=== PATIENT | male | born 1965 | race Caucasian/White ===

== ENCOUNTER 2022-07-31 14:31 | Emergency (ER) | payer MEDICAID, SELFPAY ==
[2022-07-31 14:42] VITALS: BP 154/96; PULSE 93; RESP 20; TEMP 36.6; O2SAT 96; BMI 21.8
[2022-07-31 15:12] LABS: Add Urine Microscopic? NO; Bilirubin Urine Neg (Negative); Blood Urine Neg (Negative); Charge for UA Resulting for Rev; Glucose Urine UA Norm (Normal); Ketones Urine Negative (Negative); Leukocyte Esterase Urine Negative (Negative); Nitrate Urine Negative (Negative); Protein Urine Neg (Negative); Urine Appearance Clear (CLEAR); Urine Color Yellow (Yellow); Urobilinogen Urine Norm (Negative); pH Urine 6 (5-7)
--- NOTE | 2022-07-31 15:25 | W.ED.EXTPRO ---
HPI - Extremity Problem General: Chief complaint: Extremity Injury, Lower Stated complaint: L Lower back pain into leg Time Seen by Provider: 07/31/22 15:12 PFSH ED PFSH: Medical History (Updated 07/31/22 @ 16:03 by Nicola Perkins DO) Arthritis COPD (chronic obstructive pulmonary disease) Hyperlipidemia Hypertension Surgical History (Updated 07/12/22 @ 11:24 by RICCARDO Navarro) History of surgery on lower extremity Hx of hernia repair Family History (Updated 07/08/22 @ 08:42 by Kaity Benavidez) Father No problems noted. Mother Enlarged heart Cancer colon cancer Hypertension Social History (Updated 07/08/22 @ 08:43 by Kaity Benavidez) Smoking and tobacco status: current every day smoker cigarettes Packs smoked per day: 1 Years cigarettes smoked: 40 Second hand smoke exposure: No Alcohol intake: former Household members: spouse, family and children Marital status: service: No Current occupational status: disabled Current gender identity: Male Jayshree/Christianity: Sabianist Special jayshree needs: No Course Vital Signs: Vital signs: Vital Signs Temperature 97.9 F 07/31/22 14:42 Pulse Rate 93 07/31/22 14:42 Respiratory Rate 20 H 07/31/22 14:42 Blood Pressure 154/96 07/31/22 14:42 Pulse Oximetry 96 07/31/22 14:42 Oxygen Delivery Me thod 07/31/22 14:42 MDM - Extremity (Nontraumatic) Lab Data Laboratory Results Urine Color Yellow (Yellow) 07/31/22 14:49 Urine Appearance Clear (CLEAR) 07/31/22 14:49 Urine pH 6 (5-7) 07/31/22 14:49 Ur Specific [place] 1.020 (1.005-1.030) 07/31/22 14:49 Urine Protein Neg (Negative) 07/31/22 14:49 Urine Glucose (UA) Norm (Normal) 07/31/22 14:49 Urine Ketones Negative (Negative) 07/31/22 14:49 Urine Blood Neg (Negative) 07/31/22 14:49 Urine Nitrate Negative (Negative) 07/31/22 14:49 Urine Bilirubin Neg (Negative) 07/31/22 14:49 Urine Urobilinogen Norm mg/dL (Negative) 07/31/22 14:49 Ur Leukocyte Esterase Negative (Negative) 07/31/22 14:49 Discharge Plan Discharge Patient Disposition: Home Clinical Impression: Sciatica Condition: Stable Prescriptions: New diclofenac sodium 75 mg tablet,delayed release (DR/EC) 75 mg PO Q12H PRN (Reason: pain) Qty: 20 0RF tizanidine 4 mg tablet 4 mg PO Q8H PRN (Reason: muscle spasticity) Qty: 20 0RF No Action aspirin 81 mg tablet,delayed release (DR/EC) 81 mg PO DAILY albuterol sulfate [Ventolin HFA] 90 mcg/actuation HFA aerosol inhaler 2 puff inhalation QID PRN (Reason: shortness of breath or wheezing) Qty: 8.5 5RF Anoro Ellipta 62.5-25 mcg/actuation blister with device 1 inh inhalation DAILY Qty: 60 5RF amlodipine 10 mg tablet 10 mg PO DAILY Qty: 90 1RF fluticasone propionate [Flovent HFA] 220 mcg/actuation HFA aerosol inhaler 2 puff inhalation BID Qty: 12 5RF albuterol sulfate 2.5 mg /3 mL (0.083 %) solution for nebulization 2.5 mg inhalation QID PRN (Reason: shortness of breath or wheezing) Qty: 180 5RF ibuprofen 800 mg Tablet 1,600 mg PO Q6H PRN (Reason: Pain) atorvastatin 80 mg tablet 80 mg PO QPM Discharge Orders: Discharge ED (Routine); Ordered 07/31/22 Ordered By: Nicola Perkins Referrals: Jennifer Estrada FNP [Primary Care Provider] - Discharge Diet: Usual diet Discharge Activity: Increase activity as tolerated Patient Instructions: Opioid Safety, Pain Management Activity Restrictions/Additional Instructions: You were seen for back pain. Use the meds prescribed. If there is no improvement in the prednisone taper see your PCP for further evaluation. 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
[2022-07-31] MEDS: orphenadrine 30 mg/mL Inj 2 mL 60 MG IVP (16:08)
[2022-07-31] MEDS: dexamethasone 10 mg/mL INJ IVP (16:08)
[2022-07-31] MEDS: ketorolac 30 mg/mL INJ IVP (16:08)
[2022-07-31 16:42] VITALS: BP 154/96; PULSE 93; RESP 20; TEMP 36.6; O2SAT 96
--- NOTE | 2022-07-31 16:58 | W.ED.BACK ---
HPI - Back Pain/Injury General: Chief Complaint: Extremity Injury, Lower Stated Complaint: L Lower back pain into leg Time Seen by Provider: 07/31/22 15:12 Source: patient Mode of arrival: ambulatory History of Present Illness: 49-year-old male presents emergency room with complaints of back pain with pain radiating to the left leg. Began after he was doing some heavy lifting. No history of previous surgery no previous trauma. No known cancers. Patient has not had any bowel or bladder dysfunction. MD elicited complaint: back pain Pertinent past history: prior back pain Onset (ago): day(s) Timing: constant Severity: moderate Quality: sharp Location: lumbar spine Radiation: left upper leg Exacerbating factors: sitting upright and walking Relieving factors: none Associated symptoms: Deny abdominal pain, arthralgias, chills, change in bowel habits, difficulty walking, dysuria, fatigue, fecal incontinence, fever(s), hematuria, myalgias, nausea, numbness, syncope, tingling/numbness/burning, urinary frequency, urinary urgency, vomiting or weakness Review of Systems Const: Denies: fever(s), chills, fatigue or malaise ENMT: Denies: throat pain, ear or mastoid pain, nasal discharge or nasal congestion Card: Denies: chest pain, palpitations, irregular heart rhythm or syncope Resp: Denies: dyspnea, productive cough or non-productive cough GI: Denies: abdominal pain, nausea, vomiting, fecal incontinence or change in bowel habits : Denies: dysuria, urinary frequency, urinary urgency or hematuria Musc: Reports: back pain and extremity pain Skin/Breast: Denies: rash or pruritus Neuro: Denies: difficulty walking PFS ED PFSH: Medical History Arthritis COPD (chronic obstructive pulmonary disease) Hyperlipidemia Hypertension Surgical History History of surgery on lower extremity Hx of hernia repair Family History Father No problems noted. Mother Enlarged heart Cancer colon cancer Hypertension Social History Smoking and tobacco status: current every day smoker cigarettes Packs smoked per day: 1 Years cigarettes smoked: 40 Second hand smoke exposure: No Alcohol intake: former Household members: spouse, family and children Marital status: service: No Current occupational status: disabled Current gender identity: Male Jayshree/Restoration: Restorationism Special jayshree needs: No Physical Exam Const: COMMON NORMALS: no acute distress GENERAL APPEARANCE: cooperative and comfortable ORIENTATION/CONSCIOUSNESS: Yes awake, Yes oriented to person, Yes oriented to place and Yes oriented to time HENMT: COMMON NORMALS: normocephalic, atraumatic and hearing grossly normal bilaterally HEAD & SCALP: normocephalic and atraumatic Resp: COMMON NORMALS: normal respiratory effort, No retractions, No use of accessory muscles and clear to auscultation bilaterally AUSCULTATION: clear to auscultation bilaterally Cardio: COMMON NORMALS: regular rate, regular rhythm and No murmurs present (Cardio) RATE: regular rate RHYTHM: regular rhythm GI: COMMON NORMALS: Soft to palpation and No hepatosplenomegaly present AUSCULTATION: Yes normoactive bowel sounds PALPATION: Yes Soft to palpation, No Tenderness to palpation present (GI), No Guarding due to palpation present (GI) and Yes No hepatosplenomegaly present Back/Pelvis: OTHER: Straight leg raising is negative. Deep tendon reflexes +2/4 patellar tendon +1/4 Achilles and dorsum plantar flexion 5/5 sensation normal Extremity: COMMON NORMALS: normal to inspection, capillary refill normal, no clubbing, cyanosis or edema, no calf tenderness and no pedal edema Neuro: SENSORIUM/ORIENTATION: Yes oriented to person, Yes oriented to place and Yes oriented to time Skin: COMMON NORMALS: no rashes or lesions noted GENERAL SKIN EXAM: no rashes or lesions noted Course Vital Signs: Vital signs: Vital Signs Temperature 97.9 F 07/31/22 16:42 Pulse Rate 93 07/31/22 16:42 Respiratory Rate 20 H 07/31/22 16:42 Blood Pressure 154/96 07/31/22 16:42 Pulse Oximetry 96 07/31/22 16:42 Oxygen Delivery Me thod 07/31/22 14:42 MDM - Back Pain/Injury Medical Decision Making Patient given Toradol Decadron and Norflex in the emergency room. Had some improvement. Will discharge home with steroid taper diclofenac and tizanidine. No advanced imaging indicated musculoskeletal low back pain with no trauma no previous surgery no history of cancer Medical Records I reviewed the patient's medical records. Labs I reviewed the patient's lab results. Laboratory Results Urine Color Yellow (Yellow) 07/31/22 14:49 Urine Appearance Clear (CLEAR) 07/31/22 14:49 Urine pH 6 (5-7) 07/31/22 14:49 Ur Specific [place] 1.020 (1.005-1.030) 07/31/22 14:49 Urine Protein Neg (Negative) 07/31/22 14:49 Urine Glucose (UA) Norm (Normal) 07/31/22 14:49 Urine Ketones Negative (Negative) 07/31/22 14:49 Urine Blood Neg (Negative) 07/31/22 14:49 Urine Nitrate Negative (Negative) 07/31/22 14:49 Urine Bilirubin Neg (Negative) 07/31/22 14:49 Urine Urobilinogen Norm mg/dL (Negative) 07/31/22 14:49 Ur Leukocyte Esterase Negative (Negative) 07/31/22 14:49 Discharge Plan Discharge Patient Disposition: Home Clinical Impression: Sciatica Condition: Stable Prescriptions: New diclofenac sodium 75 mg tablet,delayed release (DR/EC) 75 mg PO Q12H PRN (Reason: pain) Qty: 20 0RF tizanidine 4 mg tablet 4 mg PO Q8H PRN (Reason: muscle spasticity) Qty: 20 0RF No Action aspirin 81 mg tablet,delayed release (DR/EC) 81 mg PO DAILY albuterol sulfate [Ventolin HFA] 90 mcg/actuation HFA aerosol inhaler 2 puff inhalation QID PRN (Reason: shortness of breath or wheezing) Qty: 8.5 5RF Anoro Ellipta 62.5-25 mcg/actuation blister with device 1 inh inhalation DAILY Qty: 60 5RF amlodipine 10 mg tablet 10 mg PO DAILY Qty: 90 1RF fluticasone propionate [Flovent HFA] 220 mcg/actuation HFA aerosol inhaler 2 puff inhalation BID Qty: 12 5RF albuterol sulfate 2.5 mg /3 mL (0.083 %) solution for nebulization 2.5 mg inhalation QID PRN (Reason: shortness of breath or wheezing) Qty: 180 5RF ibuprofen 800 mg Tablet 1,600 mg PO Q6H PRN (Reason: Pain) atorvastatin 80 mg tablet 80 mg PO QPM Discharge Orders: Discharge ED (Routine); Ordered 07/31/22 Ordered By: Nicola Perkins Referrals: Jennifer Estrada FNP [Primary Care Provider] - Discharge Diet: Usual diet Discharge Activity: Increase activity as tolerated Activity Restrictions/Additional Instructions: You were seen for back pain. Use the meds prescribed. If there is no improvement in the prednisone taper see your PCP for further evaluation. 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
== END 2022-07-31 16:25 | disposition home or self-care (01) ==
PROVIDERS: Emergency Provider Family Medicine; PCP Nurse Practitioner Family
DX: M54.30 Sciatica, unspecified side (principal); Z79.82 Long term (current) use of aspirin; F17.210 Nicotine dependence, cigarettes, uncomplicated; J44.9 Chronic obstructive pulmonary disease, unspecified; I10 Essential (primary) hypertension; E78.5 Hyperlipidemia, unspecified
CPT/HCPCS: 81003; 96374; 96375; 99284; J1100; J1885; J2360

== ENCOUNTER 2022-08-03 09:26 | Emergency (ER) | payer MEDICAID, SELFPAY ==
[2022-08-03 10:42] VITALS: BP 155/82; PULSE 87; RESP 16; TEMP 36.5; O2SAT 95
--- NOTE | 2022-08-03 12:30 | W.ED.BACK ---
HPI - Back Pain/Injury General: Chief Complaint: Back Pain/Injury Stated Complaint: back pain Time Seen by Provider: 08/03/22 11:57 History of Present Illness: Patient is a 57-year-old man the presents to the emergency department with complaints of low back pain that radiates down the left lower extremity. Patient reports was lifting an 80 pound bag of concrete up onto the tailgate when he had a pulling sensation in his lumbar back patient reports pain is constant and spasm-like Patient reports pain and numbness and tingling in the anterior lateral and posterior lateral aspect of the left lower extremity. Patient reports he has had the symptoms before and has been evaluated. Unfortunately this has been several years ago. Patient reports he has just moved into the area and while he has established primary care has not actually been seen by this provider.Patient has been evaluated here in the emergency department in the last several days. He was discharged home with tizanidine and diclofenac. Patient reports that medication is not offering any relief. Associated symptoms: Deny abdominal pain, chills, difficulty walking, dysuria, fatigue, fever(s), hematuria, nausea, urinary urgency or vomiting Review of Systems General: Reports: 10 or more systems reviewed and unremarkable except in HPI and below Const: Denies: fever(s), chills, change in appetite, change in weight, fatigue or malaise Eyes: Denies: change in vision, eye discomfort, eye discharge or eye redness ENMT: Denies: throat pain, enlarged tonsils, odynophagia, hoarseness, ear or mastoid pain, ear discharge, change in hearing, tinnitus, nasal discharge, nasal congestion, post nasal drip or sinus pain Card: Denies: chest pain, palpitations, irregular heart rhythm, edema, dyspnea on exertion, orthopnea or leg pain with exertion Resp: Denies: dyspnea, productive cough, non-productive cough, wheezing, stridor or chest congestion GI: Denies: abdominal pain, nausea, vomiting, dysphagia, diarrhea, constipation, bloating, GI cramping or hematochezia : Denies: flank pain, dysuria, urinary frequency, urinary urgency, urinary hesitancy, oliguria or hematuria Musc: Denies: neck pain, back pain, extremity pain, joint pain, joint swelling, joint redness, joint warmth or muscle weakness Skin/Breast: Denies: rash, pruritus, erythema, photosensitivity or new lesions Neuro: Denies: headache(s), numbness in extremities, weakness in extremities, sensory changes, lack of coordination, difficulty walking, frequent falls, dizziness, confusion, Slurred speech present, difficulty communicating thoughts, seizure-like activity or involuntary movements Endo: Denies: polyuria, polydipsia or tired all the time Monico/Lymph: Denies: easy bruising or easy bleeding PFSH ED PFSH: Medical History Arthritis COPD (chronic obstructive pulmonary disease) Hyperlipidemia Hypertension Surgical History History of surgery on lower extremity Hx of hernia repair Family History Father No problems noted. Mother Enlarged heart Cancer colon cancer Hypertension Social History Smoking and tobacco status: current every day smoker cigarettes Packs smoked per day: 1 Years cigarettes smoked: 40 Second hand smoke exposure: No Alcohol intake: former Household members: spouse, family and children Marital status: service: No Current occupational status: disabled Current gender identity: Male Jayshree/Yazidism: Church Special jayshree needs: No Physical Exam Const: COMMON NORMALS: no acute distress, average body habitus, patient oriented x3, no limitations, healthy appearing, alert and well nourished GENERAL APPEARANCE: cooperative, comfortable and well developed; not in distress and not anxious ORIENTATION/CONSCIOUSNESS: Yes awake, Yes oriented to person, Yes oriented to place and Yes oriented to time HENMT: COMMON NORMALS: normocephalic, atraumatic, hearing grossly normal bilaterally, external ears normal, EAC's normal, TM's normal bilaterally, Normal external nose present and Normal nasal mucous membranes and turbinates present HEAD & SCALP: normal to inspection, normocephalic and atraumatic FACE & SINUS: normal facial exam and face symmetric NOSE: Normal external nose present, Normal nares present and Normal nasal mucous membranes and turbinates present GENERAL EAR: hearing not grossly impaired EXTERNAL EAR: Yes external ears normal and Yes no periauricular adenopathy EXTERNAL AUDITORY CANAL: EAC's normal TYMPANIC MEMBRANE: TM's normal bilaterally MOUTH: Normal oral and palatal mucosa present, lip normal, tongue normal and Normal salivary glands and ducts present THROAT: posterior oropharynx normal, tonsils normal and uvula midline Eye: COMMON NORMALS: Equal, round and reactive pupils present, EOMs intact bilaterally, conjunctivae normal, no scleral icterus and no papilledema GENERAL EYE: appearance normal, both eyes and all related structures ALIGNMENT: Yes alignment normal PERIORBITAL: periorbital findings normal EYELID: eyelids normal CONJUNCTIVA: Yes conjunctivae normal PUPIL: Yes Equal, round and reactive pupils present DIRECT OPHTHALMOSCOPY: Yes no papilledema Neck/C-Spine: COMMON NORMALS: full ROM, supple, no meningeal signs and no JVD GENERAL: Yes normal visual inspection CERVICAL SPINE: Yes cervical ROM normal Lymph: LYMPHATIC: no lymphadenopathy noted Chest: COMMONS NORMALS: normal inspection of the chest Breast/axilla inspection: Yes no chest deformity, asymmetry, normal contours, no nodules, masses, tenderness Resp: COMMON NORMALS: normal respiratory effort, No retractions, No use of accessory muscles and clear to auscultation bilaterally EFFORT & INSPECTION: Yes able to speak in complete sentences, Yes symmetric chest movement, No abnormal respiratory pattern, No tachypneic and No respiratory distress AUSCULTATION: clear to auscultation bilaterally Cardio: COMMON NORMALS: no JVD, regular rate, regular rhythm and Peripheral pulses 2+ throughout RATE: regular rate RHYTHM: regular rhythm PERIPHERAL PULSES: Peripheral pulses 2+ throughout GI: COMMON NORMALS: Normal to inspection, nondistended, normoactive bowel sounds present, Soft to palpation and non-tender INSPECTION: Yes normal to inspection PALPATION: Yes Soft to palpation : COMMON NORMALS: Yes no CVA tenderness BLADDER/KIDNEY EXAM: Yes no CVA tenderness and Yes CVA tenderness Back/Pelvis: COMMON NORMALS: no CVA tenderness, thoracic and lumbar spine normal to inspection, no thoracic nor lumbar tenderness, thoraco-lumbar ROM normal and straight leg raise negative bilaterally GENERAL BACK: Yes CVA tenderness and No ecchymosis THORACIC SPINE/UPPER BACK: Yes normal to inspection LUMBAR SPINE/LOWER BACK: Yes normal to inspection and Yes straight leg raise negative bilaterally OTHER: Patient reports lumbar back pain that radiates along the L4 and L5 nerve distribution of the left lower extremity. Patient does report some numbness and tingling Patient denies any weakness Patient has 5/5 strength throughout lower extremities including hip flexor, quad, gastroc, EHL/FHL Patient has sensation throughout but does describe numbness and tingling in the L4 and L5 distribution Patient denies any saddle paresthesias Extremity: COMMON NORMALS: normal to inspection, full ROM and capillary refill normal GENERAL: Yes normal exam except as noted Neuro: COMMON NORMALS: patient oriented x3 SENSORIUM/ORIENTATION: Yes alert, Yes oriented to person, Yes oriented to place and Yes oriented to time MENINGEAL SIGNS: Yes no meningeal signs Psych: COMMON NORMALS: mental status grossly normal, Normal thought process present, cooperative, normal affect, speech normal and activity/motor behavior normal SPEECH: Yes normal speech THOUGHT PROCESS: Normal thought process present Skin: COMMON NORMALS: no rashes or lesions noted, no wounds, turgor normal, no jaundice, no petechiae and no mottling GENERAL SKIN EXAM: no rashes or lesions noted and turgor normal Course Vital Signs: Vital signs: Vital Signs Temperature 97.7 F 08/03/22 10:42 Pulse Rate 83 08/03/22 14:49 Respiratory Rate 15 08/03/22 14:49 Blood Pressure 152/89 08/03/22 14:49 Pulse Oximetry 95 08/03/22 14:49 Oxygen Delivery Me thod 08/03/22 14:49 MDM - Back Pain/Injury Medical Decision Making Patient was evaluated in the emergency department for complaints of lumbar back pain. Patient's differential diagnosis includes spondylosis, spondylolisthesis, muscle spasm, facet arthropathy, Sent denies any trauma or injury to the back. He describes the eliciting event as lifting a heavy bag of concrete. Patient denies discussed available diagnostics which included x-ray and MRI. XR imaging of the lumbar spine would be limited. Patient's is very upset by this and is disruptive in the emergency department. She was asked to leave. XR imaging would give us some information but honestly an MRI would offer us more information. Unfortunately patient did not want to wait any longer for MR imaging of his lumbar spine. Patient has elected to discharge home and follow-up with his primary care provider in [place] Patient was treated with Norflex, Toradol, Decadron here in the emergency department and will discharge home with Robaxin and Toradol. Patient is to return to the emergency department for new, concerning, worsening symptoms. Questions sought and answered Discharge Plan Discharge Patient Disposition: Home Clinical Impression: Strain of lumbar region, Lumbar radiculopathy Condition: Stable Prescriptions: New methocarbamol 500 mg tablet 500 mg PO Q4H Qty: 30 0RF ketorolac 10 mg tablet 10 mg PO Q8H Qty: 10 0RF gabapentin 300 mg capsule 300 mg PO Q8H Qty: 30 0RF No Action aspirin 81 mg tablet,delayed release (DR/EC) 81 mg PO DAILY albuterol sulfate [Ventolin HFA] 90 mcg/actuation HFA aerosol inhaler 2 puff inhalation QID PRN (Reason: shortness of breath or wheezing) Qty: 8.5 5RF Anoro Ellipta 62.5-25 mcg/actuation blister with device 1 inh inhalation DAILY Qty: 60 5RF amlodipine 10 mg tablet 10 mg PO DAILY Qty: 90 1RF fluticasone propionate [Flovent HFA] 220 mcg/actuation HFA aerosol inhaler 2 puff inhalation BID Qty: 12 5RF albuterol sulfate 2.5 mg /3 mL (0.083 %) solution for nebulization 2.5 mg inhalation QID PRN (Reason: shortness of breath or wheezing) Qty: 180 5RF ibuprofen 800 mg Tablet 1,600 mg PO Q6H PRN (Reason: Pain) diclofenac sodium 75 mg tablet,delayed release (DR/EC) 75 mg PO Q12H PRN (Reason: pain) Qty: 20 0RF tizanidine 4 mg tablet 4 mg PO Q8H PRN (Reason: muscle spasticity) Qty: 20 0RF atorvastatin 80 mg tablet 80 mg PO QPM Discharge Orders: Discharge ED (Routine); Ordered 08/03/22 Ordered By: Jan Braswell [facility] Referrals: Jennifer Estrada FNP [Primary Care Provider] - Discharge Diet: Advance as tolerated Discharge Activity: Resume usual activity Patient Instructions: Opioid Safety, Pain Management Activity Restrictions/Additional Instructions: Please discontinue use of your previously prescribed medications?tizanidine and diclofenac. I have prescribed you Robaxin which you can take up to 4 times a day and Toradol (ketorolac) which you can take 3 times a day. Gabapentin is a medication that will work on nerve pain. This will hopefully relieve some of your lower extremity complaints. You need to follow-up with your primary care doctor. They will order additional diagnostics as needed. Please return to the emergency department for any new, concerning, worsening symptoms. 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
[2022-08-03] MEDS: dexamethasone 10 mg/mL INJ IM (12:40)
[2022-08-03] MEDS: orphenadrine 30 mg/mL Inj 2 mL 60 MG IM (12:46)
[2022-08-03] MEDS: ketorolac 60 mg/2 mL INJ IM (12:46)
[2022-08-03 14:49] VITALS: BP 152/89; PULSE 83; RESP 15; O2SAT 95
== END 2022-08-03 15:31 | disposition home or self-care (01) ==
PROVIDERS: Emergency Provider Nurse Practitioner; PCP Nurse Practitioner Family
DX: S39.012A Strain of muscle, fascia and tendon of lower back, initial encounter (principal); M54.16 Radiculopathy, lumbar region; Z79.82 Long term (current) use of aspirin; J44.9 Chronic obstructive pulmonary disease, unspecified; E78.5 Hyperlipidemia, unspecified; I10 Essential (primary) hypertension; F17.210 Nicotine dependence, cigarettes, uncomplicated; X50.0XXA Overexertion from strenuous movement or load, initial encounter
CPT/HCPCS: 96372; 99284; J1100; J1885; J2360

== ENCOUNTER 2022-08-24 15:45 | Outpatient (CLI) | payer MEDICARE, MEDICAID, SELFPAY ==
--- NOTE | 2022-08-24 16:01 | XR_ITS ---
WS: [id number] EYE TECHNIQUE: 2 views of the skull CLINICAL INFORMATION: FOREIGN BODY PRE MRI ORBITS COMPARISON: None. FINDINGS: No definite visualized radiopaque foreign bodies however patient reports history of metallic foreign body in eye from welding. Given history recommend CT lumbar spine in place of MRI. XR/XR eye foreign body [id number] IMPRESSION: See above
--- NOTE | 2022-08-24 16:53 | CT_ITS ---
WS: [id number] CT LUMBAR SPINE, noncontrast. HISTORY: M54.50 - Low back pain, unspecified TECHNIQUE: Contiguous 2.5 mm axial imaging are performed. Sagittal and coronal reformats are submitte d and reviewed. All CT scans at [facility] use at least one of these dose optimization techni ques: automated exposure control; mA and/or kV adjustment per patient size (includes targeted exams w here dose is matched to clinical indication); or iterative reconstruction. IV contrast: None DLP: 659.04 mGy-cm. COMPARISON: None available. Normal posterior lumbar alignment. Mild narrowing of the disc spaces. Small hypertrophic osteophytes at all vertebral body levels. Marked narrowing of the SI joints with sclerosis. Partial fusion along the superior SI joints. L1-2: Mild annular disc bulging and facet arthritis. L2-3: Mild annular disc bulging with mild osteophytic ridging. Mild ligamentum flavum hypertrophy. Ve ry slight central and subarticular recess narrowing. L3-4: Mild annular disc bulging and osteophytic ridging. Moderate ligamentum flavum and facet arthrit is. Encroachment and narrowing of the central canal. Moderate central with bilateral subarticular rec ess stenosis and mild foraminal stenosis. Most significant encroachment upon the traversing L4 nerve roots. L4-5: Moderate annular disc bulging and osteophytic ridging. Marked ligamentum flavum placement and m ild facet arthritis. Increased soft tissue in the LEFT foramen. Most consistent with a LEFT foraminal disc protrusion causing complete effacement of fat. There is probably also a small tiny central disc protrusion. Moderate to severe central and bilateral subarticular recess stenosis. Severe LEFT lara inal stenosis and moderate RIGHT foraminal stenosis. L5-S1: Mild disc bulging encroaching and contacting the S1 nerve roots bilaterally but no displacemen t. Only mild bilateral subarticular recess stenosis. Moderate calcified plaque throughout the abdominal aorta extending into the iliac arteries. CT/CT lumbar spine wo con* [id number] IMPRESSION: 1. Moderate to severe central and bilateral subarticular recess stenosis L4-5. 2. Severe LEFT foraminal stenosis at L4-5 with a LEFT foraminal disc protrusio n causing complete effacement of fat and contacting the L4 nerve root. 3. Moderate central, bilateral subarticular recess and mild foraminal stenosis at L3-4 with more significant encroachment upon the traversing L4 nerve roots. 4. Minimal central and subarticular recess stenosis at L2-3. 5. 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
== END 2022-08-24 15:46 | disposition home or self-care (01) ==
PROVIDERS: PCP Nurse Practitioner Family; Visit Provider Nurse Practitioner Family
DX: M54.50 Low back pain, unspecified (principal); T15.90XA Foreign body on external eye, part unspecified, unspecified eye, initial encounter; X58.XXXA Exposure to other specified factors, initial encounter
CPT/HCPCS: 70030; 72131

== ENCOUNTER → 2022-09-03 15:23 | Outpatient (BNVA) | payer MEDICARE, MEDICAID, SELFPAY | PROVIDERS: PCP Nurse Practitioner Family; Referring Provider Nurse Practitioner Family; Visit Provider Orthopaedic Surgery | DX: M48.062 Spinal stenosis, lumbar region with neurogenic claudication (principal); M47.816 Spondylosis without myelopathy or radiculopathy, lumbar region | CPT/HCPCS: 72110; 99204 ==

== ENCOUNTER → 2022-09-29 12:03 | Outpatient (BNVA) | payer MEDICARE, MEDICAID, SELFPAY | PROVIDERS: PCP Nurse Practitioner Family; Visit Provider Internal Medicine | DX: I25.10 Atherosclerotic heart disease of native coronary artery without angina pectoris (principal); I48.91 Unspecified atrial fibrillation; I10 Essential (primary) hypertension; E78.5 Hyperlipidemia, unspecified; J44.9 Chronic obstructive pulmonary disease, unspecified; F17.210 Nicotine dependence, cigarettes, uncomplicated | CPT/HCPCS: 93005; 99204 ==

== ENCOUNTER 2022-10-01 10:35 | Outpatient (CLI) | payer MEDICARE, MEDICAID, SELFPAY ==
--- NOTE | 2022-10-01 10:30 | IR_ITS ---
WS: [id number] LUMBAR MYELOGRAM HISTORY: M48.062 - Spinal stenosis, lumbar region with neurogenic medication COMPARISON: Prior lumbar CT 08/24/2022 is reviewed. FLUOROSCOPY TIME: 1min [id number] # of spot films: 0 Procedure, risks and complications were explained to the patient. Risks including bleeding, infection , headaches, allergic reaction and seizures. Consent has been obtained. With the patient in prone position the skin over the lumbar region is cleansed with ChloraPrep and an esthetized with lidocaine. 22-gauge spinal needle is inserted into the thecal sac at the appropriate level determined by fluoroscopy. Omnipaque 240; 13 ml is injected slowly under fluoroscopy with no co mplications. Needle bevel is perpendicular to the longitudinal fibers of the dura. Stylet is reinsert ed prior to removal of the needle. Patient tolerated the procedure well. Patient will proceed to CT f or further evaluation. Mild narrowing of the thecal sac at the L4-5 level. There is additional mild extrinsic mass effect at L3-4 upon the ventral cord. Both of these areas will be evaluated on the follow-up CT. Extensive calcification within the aorta and iliac arteries. IR/IR myelogram sp lumbar [id number] IMPRESSION: 1. Uncomplicated lumbar spine myelogram. CT myelogram to follow. 2. Central stenosis at L3-4 and L4-5. Refer to the CT myelogram report.
--- NOTE | 2022-10-01 10:30 | CT_ITS ---
WS: [id number] CT MYELOGRAM LUMBAR SPINE HISTORY: M48.062 - Spinal stenosis, lumbar region with neurogenic claudication. TECHNIQUE: Contiguous 2.0 mm axial imaging performed from T12 through the mid sacral level. Bone and soft tissue windows reviewed. Sagittal and coronal reformats are submitted and reviewed. DLP: 581.[address] scans at [facility] use at least one of these dose optimization techniques: automated e xposure control; mA and/or kV adjustment per patient size (includes targeted exams where dose is matc hed to clinical indication); or iterative reconstruction. COMPARISON: Lumbar spine CT 08/24/2012 Good distention of the thecal sac with contrast. Less than 2 mm retrolisthesis of L3. Mild disc space narrowing at L3-4 with vacuum disc phenomenon. No lumbar spine fractures. Small hypertrophic endplat e osteophytes. L1-L2: Mild annular disc bulging with a central disc protrusion. Mild ligamentum flavum hypertrophy. No stenosis. L2-L3: Mild annular disc bulging. Mild ligamentum flavum and facet arthritis. No stenosis. L3-L4: Mild annular disc bulging with ligamentum flavum and facet arthritis. Partial effacement of ce ntral CSF. There is disc encroachment into the subarticular recesses. Mild to moderate central and bi lateral subarticular recess stenosis. No significant foraminal stenosis. L4-L5: Mild annular disc bulging with mild facet and ligamentum flavum hypertrophy. Increased soft ti ssue completely effacing fat in the LEFT foramen. There is a large LEFT foraminal/extraforaminal disc protrusion with significant contact on the exiting LEFT L4 nerve root. There is at least moderate ce ntral stenosis with additional disc encroachment into the subarticular recesses. L5-S1: Mild asymmetric disc bulging. There is very slight disc contact on the S1 nerve roots bilatera lly. No significant stenosis. Heavy calcification within the abdominal aorta extending into the iliac arteries. RIGHT lower lobe op acification. CT/CT lumbar spine w con [id number] IMPRESSION: 1. LEFT foraminal and extraforaminal disc protrusion at L4-5. Significant repl acement of the fat within the foramen and contact on the exiting LEFT L4 nerve root. 2. Moderate central and bilateral subarticular recess stenosis at L4-5 with d isc contacting the L5 nerve roots. 3. Mild to moderate central and bilateral subarticular recess stenosis at L3-4 .
[2022-10-01] MEDS: iohexol 240 mg/mL 50 mL Btl INTRATHECA (11:34)
== END 2022-10-01 10:36 | disposition home or self-care (01) ==
LOC: RAD 10:40
PROVIDERS: PCP Nurse Practitioner Family; Visit Provider Physician Assistant
DX: M48.062 Spinal stenosis, lumbar region with neurogenic claudication (principal)
CPT/HCPCS: 62304; 72132; Q9966

== ENCOUNTER → 2022-10-08 14:47 | Outpatient (BNVA) | payer MEDICARE, MEDICAID, SELFPAY | PROVIDERS: PCP Nurse Practitioner Family; Visit Provider Orthopaedic Surgery | DX: M48.062 Spinal stenosis, lumbar region with neurogenic claudication (principal) | CPT/HCPCS: 99214 ==

== ENCOUNTER 2022-10-23 06:00 | Day surgery (SDC) | payer MEDICARE, MEDICAID, SELFPAY ==
[2022-10-19 08:51] VITALS: BMI 23.1
--- NOTE | 2022-10-19 17:10 | P.ANESASSM_ITS ---
Pre-Anesthetic Assessment Height/Weight: Height 1.88 m Weight 81.647 kg Operation Date: 10/23/22 10:15 Proposed Procedures p Lumbar Spine Decompression(Not Applicable) - Serafin Ponce, DO Familial anesthetic complications: none Was Beta Eliza taken within 24 hours: N/A Was Clonidine taken within 24 hours: N/A Social Tobacco and No alcohol Exam alert, oriented x 3 and regular rate & rhythm Airway Submandibular: within normal limits Cervical ROM: within normal limits Mallampati: Class II Dentition: chipped Pulmonary Chronic Obstructive Pulmonary Disease CV[place] [facility] [place] Lower Back Pain Anesthetic Plan ASA status: 3 Anesthesia: General Medications/Allergies Home Medications Medication Instructions Recorded Confirmed Last Taken Type albuterol sulfate 2.5 mg/3 mL 2.5 mg (3 mL) inhalation QID PRN 07/08/22 10/19/22 Unknown Rx (0.083 %) solution for nebulization shortness of breath or wheezing #180 mL albuterol sulfate 90 mcg/actuation 2 puff inhalation QID PRN 07/08/22 10/19/22 Unknown Rx aerosol inhaler (Ventolin HFA) shortness of breath or wheezing #8.5 grams amlodipine 10 mg tablet 10 mg PO DAILY #90 tabs 07/08/22 10/19/22 10/19/22 Rx fluticasone propionate 220 2 puff inhalation BID #12 grams 07/08/22 10/19/22 10/19/22 Rx mcg/actuation HFA aerosol inhaler (Flovent HFA) umeclidinium 62.5 mcg-vilanterol 1 inh inhalation DAILY #60 ea 07/08/22 10/19/22 07/30/22 Rx 25 mcg/actuation powdr for inhalation (Anoro Ellipta) atorvastatin 80 mg tablet 80 mg PO QPM 07/31/22 10/19/22 10/19/22 History gabapentin 400 mg capsule 400 mg PO TID #60 caps 09/10/22 10/19/22 10/19/22 Rx aspirin 325 mg tablet 325 mg PO DAILY #90 tabs 09/29/22 10/19/22 10/16/22 Rx Allergies Allergy/AdvReac Type Severity Reaction Status Date / Time lisinopril Allergy Intermediate COUGH Verified 10/19/22 08:51 [facility] Anesthesia Medical History Afib Arthritis CAD (coronary artery disease) COPD (chronic obstructive pulmonary disease) Hyperlipidemia Hypertension Lung nodule 6mm nodule LLL on chest CT 01/2022; stable from CT chest in 2019 Surgical History History of colonoscopy 01/11/2019 one 3mm polyp in descending colon repeat colonoscopy in 5 years Performed at [facility] in [place], [place] History of surgery on lower extremity Hx of hernia repair Family History Father No problems noted. Mother Enlarged heart Cancer colon cancer Hypertension Social History Smoking and tobacco status: current every day smoker cigarettes Packs smoked per day: 1 Years cigarettes smoked: 40 Second hand smoke exposure: No Alcohol intake: former Household members: spouse, family and children Marital status: service: No Current occupational status: disabled Current gender identity: Male Jayshree/Adventism: Voodoo Special jayshree needs: No Data Anesthesia Cardiac Studies: No Data to Display
[2022-10-23] VITALS (7 sets, daily range): BP systolic 101–136; BP diastolic 63–88; PULSE 71–90; RESP 16–18; TEMP 36.1–36.6; O2SAT 92–97
--- NOTE | 2022-10-23 | XR_ITS ---
WS: [id number] XR lumbar spine 2-3V* [id number] REASON FOR EXAM: SURGICAL PROCEDURE FINDINGS: Surgical instrument overlying the left L4-L5 disc space. XR/XR lumbar spine 2-3V* [id number] IMPRESSION: Lumbar localization as above.
[2022-10-23] MEDS: sodium chloride 0.9% 1,000 ML 30 ML IV (06:40)
[2022-10-23] MEDS: HYDROmorphone 1 mg/mL INJ 1 mL 0.5 MG IVP (07:01)
--- NOTE | 2022-10-23 07:54 | W.PM.OPSUD ---
Surgery/Procedure H&P Update DATE OF PROCEDURE: October 23, 2022 DATE H&P PERFORMED: 10/08/22 H&P UPDATE INFORMATION: I have reviewed H&P completed within last 30 days, I have examined patient prior to procedure and No changes to prior documentation PREOP DIAGNOSIS: Lumbar radiculopathy, HNP left L4-5 PLANNED PROCEDURE: Operation Date: 10/23/22 08:05 Proposed Procedures p Lumbar Spine Decompression; L4-5 Discectomy(Not Applicable) - Serafin Ponce DO
--- NOTE | 2022-10-23 08:02 | P.ANESUD_ITS ---
Pre-Anesthetic Update Pre-Anesthetic Assessment: Date of Surgery/Procedure: 10/23/22 Preop Gerda gnosis: Lumbar radiculopathy, HNP left L4-5 Proposed Procedure: Operation Date: 10/23/22 08:05 Proposed Procedures p Lumbar Spine Decompression; L4-5 Discectomy(Not Applicable) - Serafin Ponce, DO Any changes to Pre-Anesthetic Assessment?: No Last Intake: Intake Last Liquid Date 10/22/22 Last Liquid Time 22:30 Last Solid Date 10/22/22 Last Solid Time 22:30 Vitals: Temperature 97.7 F 10/23/22 06:27 Temperature Source Temporal Artery S can 10/23/22 06:27 Pulse Rate 90 10/23/22 06:27 Respiratory Rate 16 10/23/22 07:01 Respiratory Effort 10/23/22 07:01 Respiratory Depth Normal 10/23/22 07:01 Respiratory Patter n 10/23/22 07:01 Blood Pressure 136/88 10/23/22 06:27 Blood Pressure Dahlia n 104 10/23/22 06:27 Pulse Oximetry 95 10/23/22 07:01 Oxygen Delivery Me thod 10/23/22 06:27 Exam: Pre-Anes Outpt Exam: alert, oriented x 3, clear to auscultation bilater ally and regular rate & rhythm Cardiac Studies: No Data to Display
[2022-10-23] MEDS: ceFAZolin 2,000 MG in sodium chloride 0.9% (plus) 50 ML 100 MG IV (08:19)
[2022-10-23] MEDS: lidocaine-epi 1% 20 mL INJ INJECTION (08:43)
--- NOTE | 2022-10-23 09:20 | P.OP_ITS ---
Operative Report Date of procedure: October 23, 2022 Pre-op diagnosis: Preop Diagnosis Lumbar radiculopathy, HNP left L4-5 Post-op diagnosis: same Procedure done: 1. L4/5 laminectomy with partial facetectomy Surgeon: Serafin Ponce Writing Manager: Catarino Rawls Writing Manager: The surgical instrument mechanic, Catarino Rawls, ADITI was needed for his expertise under the microscope. He was important and necessary throughout the procedure to complete in a safe and timely manner. He assisted with patient positioning prepping and draping tissue retraction suctioning of the operative field protection of the dural sac and tissue closure Estimated blood loss (mL): 5 Procedure: 1. L4/5 laminectomy with partial facetectomy Patient is brought to the operative suite. After undergoing anesthesia they are placed in the prone position. All areas of impingement are well padded. Patient is then prepped and draped in the normal sterile fashion. A skin incision is made over the L4/5 level. This is confirmed under c-arm guidance. A series of dilators are passed and the tubular retractor is docked on the L4 lamina. A bovie is used to clear the soft tissue off the lamina and the L 4/5 facet joint. A high speed aaron is then used to perform the laminectomy and take down the medial aspect of the L 4/5 facet joint. A kerrison rongeure was then used to take down the remaining lamina and smooth the edge of the laminectomy up to the point where the ligamentum flavum attaches. Attention was then brought to the medial aspect of the facet joint. The r emaining medial aspect of the superior and inferior aspect of the facet joint were taken down with the kerrison from the pedicle of L4 to L 5. The facet joint had significant hypertrophy. Attention was then brought to the Ligamentum Flavum. The ligament was taken down from the lamina of L4 to L5 and out medially to the remaining facet joint. The ligament was thick. The dura was then exposed. The dura was in good repair. The L4 nerve was then traced with a curette out the L4/5 foramen and found to be adequately decompressed. The L5 nerve was traced with a curette around the L5 pedicle. The lateral recess was opened with a kerrison helping to further decompress the L5 nerve. Wound is then irrigated copiously with saline and surgiflo is used to stop any bleeding. The tubular retractor is removed and the wound is closed with vicryl and monocryl suture. Glue is then used to protect the wound. A sterile dressing is then placed. Patient was then placed in the supine position and transferred to the PACU in stable condition.
[2022-10-23] MEDS: HYDROcodone-acetaminophen 5-325 mg Tablet 1 TAB PO (09:48)
--- NOTE | 2022-10-23 14:12 | ANE.PACU2 ---
Inpatient post-anesthesia follow up: Airway intact: Yes Vital signs: Temperature 98 F Pulse Rate 71 Respiratory Rate 16 Blood Pressure 107/86 Pulse Oximetry 94 Oxygen Delivery Me thod Room Air Oxygen Flow Rate Fraction of Inspir ed Oxygen Hydration adequate: Yes Nausea and vomiting: No Pain level: 3 Mental status: Baseline
== END 2022-10-23 10:40 | disposition home or self-care (01) ==
PROVIDERS: PCP Nurse Practitioner Family; Visit Provider Orthopaedic Surgery
PROC: (CPT 63005; principal; 2022-10-23 07:55)
DX: M54.16 Radiculopathy, lumbar region (principal); J44.9 Chronic obstructive pulmonary disease, unspecified; I10 Essential (primary) hypertension; I48.91 Unspecified atrial fibrillation; M19.90 Unspecified osteoarthritis, unspecified site; I25.10 Atherosclerotic heart disease of native coronary artery without angina pectoris; F17.210 Nicotine dependence, cigarettes, uncomplicated
CPT/HCPCS: 63047; 72100; 76000; J0690; J1100; J1170; J2405; J2704; J2710; J3490; J7030

== ENCOUNTER → 2022-11-10 10:39 | Outpatient (BNVA) | payer MEDICARE, MEDICAID, SELFPAY | PROVIDERS: PCP Nurse Practitioner Family; Visit Provider Physician Assistant | DX: Z98.890 Other specified postprocedural states (principal) | CPT/HCPCS: 99024 ==

== ENCOUNTER → 2022-11-18 09:56 | Outpatient (BNVA) | payer MEDICARE, MEDICAID, SELFPAY | PROVIDERS: PCP Nurse Practitioner Family; Visit Provider Internal Medicine Pulmonary Disease | DX: J44.9 Chronic obstructive pulmonary disease, unspecified (principal); F17.210 Nicotine dependence, cigarettes, uncomplicated; R91.1 Solitary pulmonary nodule; I25.10 Atherosclerotic heart disease of native coronary artery without angina pectoris | CPT/HCPCS: 99204 ==

== ENCOUNTER → 2022-11-18 09:56 | Outpatient (BNVA) | payer MEDICARE, MEDICAID, SELFPAY | PROVIDERS: PCP Nurse Practitioner Family; Visit Provider Internal Medicine Pulmonary Disease | DX: R06.02 Shortness of breath (principal); J44.9 Chronic obstructive pulmonary disease, unspecified | CPT/HCPCS: 36415; 80053; 82785; 85025; 86003 ==

== ENCOUNTER → 2022-12-10 15:01 | Outpatient (BNVA) | payer MEDICARE, MEDICAID, SELFPAY | PROVIDERS: PCP Nurse Practitioner Family; Visit Provider Physician Assistant | DX: Z98.890 Other specified postprocedural states (principal) | CPT/HCPCS: 99024 ==

== ENCOUNTER → 2022-12-24 14:03 | Outpatient (BNVA) | payer MEDICARE, MEDICAID, SELFPAY | PROVIDERS: PCP Nurse Practitioner Family; Visit Provider Orthopaedic Surgery | DX: Z47.89 Encounter for other orthopedic aftercare (principal) | CPT/HCPCS: 99024 ==

== ENCOUNTER → 2023-01-06 11:53 | Outpatient (BNVA) | payer MEDICARE, MEDICAID, SELFPAY | PROVIDERS: PCP Nurse Practitioner Family; Visit Provider Nurse Practitioner Family | DX: E78.5 Hyperlipidemia, unspecified (principal) | CPT/HCPCS: 80061; 84443 ==

== ENCOUNTER 2023-02-12 11:59 | Outpatient (CLI) | payer MEDICARE, MEDICAID, SELFPAY ==
--- NOTE | 2023-02-12 12:15 | CT_ITS ---
WS: [id number] LDCT LUNG CANCER SCREENING HISTORY: R91.1 - Solitary pulmonary nodule TECHNIQUE: Axial imaging performed from the apices to 1 cm below the costophrenic angles. Coronal and sagittal reformats are submitted with axial MIP series. All CT scans at [facility] use at least one of these dose optimization techniques: automated exposure control; mA and/or kV adjustment per patient size (includes targeted exams where dose is matched to clinical indication); or iterativ e reconstruction. DLP: 55.51 mGy.cm DIvol: Mean CTDIvol: 1.00 (mGy) COMPARISON: None available. Diagnostic quality: Satisfactory Lungs: Moderate to severe centrilobular emphysema. Mild dependent changes at the lung bases. No nodul e or mass. Heart: Normal size heart with no pericardial effusion.. Extensive coronary artery calcifications. Other findings: Moderate atherosclerotic calcified plaque thoracic aorta. Small mediastinal and hilar lymph nodes. Small hiatal hernia. CT/CT lung screening [id number] IMPRESSION: LUNG-RADS: 1-Negative FOLLOW UP: 12 Month: Continue annual screening with LDCT OTHER FINDINGS (S MODIFIER): None.
== END 2023-02-12 12:00 | disposition home or self-care (01) ==
LOC: RAD 12:00
PROVIDERS: PCP Nurse Practitioner Family; Visit Provider Internal Medicine Pulmonary Disease
DX: R91.1 Solitary pulmonary nodule (principal)
CPT/HCPCS: 71271

== ENCOUNTER 2023-03-01 13:32 | Outpatient (CLI) | payer MEDICARE, MEDICAID, SELFPAY ==
--- NOTE | 2023-03-01 13:49 | XR_ITS ---
WS: [id number] L-SPINE : EXAMINATION: XR lumbar spine min 4V [id number] REASON FOR EXAM: pain COMPARISON: 10/23/2022 ORDER DATE: 03/01/2023 1:50 PM FINDINGS: Generalized degenerative spinal changes are seen including moderate degenerative endplate changes and marginal osteophytes. There is minimal narrowing of the intervertebral disc spaces. There is no evid ence of acute compression deformities or spondylolisthesis on flexion and extension views.. There is marked atherosclerotic aortoiliac calcification. XR/XR lumbar spine min 4V [id number] IMPRESSION: MODERATE DEGENERATIVE SPINE CHANGE AND SPONDYLOSIS. PROMINENT ATHEROSCLEROTIC C ALCIFIED PLAQUE NOTED
== END 2023-03-01 13:33 | disposition home or self-care (01) ==
PROVIDERS: PCP Nurse Practitioner Family; Visit Provider Nurse Practitioner
DX: M47.816 Spondylosis without myelopathy or radiculopathy, lumbar region (principal); I70.0 Atherosclerosis of aorta
CPT/HCPCS: 72110

== ENCOUNTER → 2023-03-29 14:16 | Outpatient (BNVA) | payer MEDICARE, MEDICAID, SELFPAY | PROVIDERS: PCP Nurse Practitioner Family; Visit Provider Internal Medicine | DX: I25.10 Atherosclerotic heart disease of native coronary artery without angina pectoris (principal); I48.91 Unspecified atrial fibrillation; I10 Essential (primary) hypertension; E78.5 Hyperlipidemia, unspecified; J44.9 Chronic obstructive pulmonary disease, unspecified; F17.210 Nicotine dependence, cigarettes, uncomplicated | CPT/HCPCS: 99214 ==

== ENCOUNTER 2023-04-09 14:07 | Outpatient (CLI) | payer MEDICARE, MEDICAID, SELFPAY ==
--- NOTE | 2023-04-09 14:30 | USCV_ITS ---
Sampson Bean Age: 57 Gender: M : 1965 Exam Date: 04/09/2023 15:02 Ordering Phys: Victorino Cool M.D ([email or web address]) Technologist: Vargas Isaac [place] [facility] [place]: chest pain BP: 118 / 72 HR: 66 Rhythm: Sinus Technical Quality: Adequate MEASUREMENTS (Male / Female) Normal Values 2D ECHO LVOT Diameter 2.1 cm LV Ejection Fraction MOD 2C 60.1 % LV Ejection Fraction 2C AL 61.7 % LA Diameter 3.3 cm LA Width 2.9 cm LA Height 4.6 cm RA Width 2.8 cm RA Height 3.8 cm Aorta at Sinotubular Diameter 2.5 cm IVC Diameter 1.4 cm M-MODE Aortic Annulus Diameter 2.8 cm LA Ao Ratio MM 1.2 MV E Point Septal Separation 0.6 cm DOPPLER AV Peak Velocity 110.0 cm/s LVOT Peak Velocity 90.0 cm/s AV Area Cont Eq vti 3.0 cm squared AV Area Cont Eq pk 2.8 cm squared MV Peak Velocity 63.0 cm/s MV Area PHT 3.2 cm squared Mitral E to A Ratio 0.9 MV E' Velocity 29.0 cm/s Mitral E to MV E' Ratio 4.6 Mitral E to LV E' Lateral Ratio 4.8 Mitral E to LV E' Septal Ratio 4.4 TR Peak Velocity 106.4 cm/s TR Peak Gradient 4.5 mmHg TR Mean Velocity 84.2 cm/s TR Mean Gradient 2.9 mmHg TR Velocity Time Integral 22.2 cm Right Atrial Pressure 3.0 mmHg Pulmonary Artery Systolic Pressu 7.5 mmHg PV Peak Velocity 91.3 cm/s RV Acceleration Time 0.1 s RV Ejection Time 0.3 s RV AcT/ET 0.4 FINDINGS Left Ventricle Left ventricle is normal in size. LV systolic function is normal with EF 55 to 60%. No regional wall motion abnormalities are seen. Grade 1 diastolic dysfunction Right Ventricle Normal in size and function Right Atrium Normal in size Left Atrium Normal in size Mitral Valve Structurally normal mitral valve. Trace mitral regurgitation. Aortic Valve Structurally normal aortic valve. No significant stenosis or regurgitation. Tricuspid Valve Mild tricuspid regurgitation. Insufficient TR jet to calculate RVSP. Pulmonic Valve Not well-visualized. Pericardium Normal Aorta Normal in size IVC Appears to be normal CONCLUSIONS LV systolic function is normal with EF of 55 to 60%. Grade 1 diastolic dysfunction Trace mitral regurgitation Mild tricuspid regurgitation No comparison studies available. Victorino Cool MD (Electronically Signed) Final Date: 26 April 2023 14:07 S
== END 2023-04-09 14:08 | disposition home or self-care (01) ==
LOC: RAD 14:08
PROVIDERS: PCP Nurse Practitioner Family; Visit Provider Internal Medicine
DX: I08.1 Rheumatic disorders of both mitral and tricuspid valves (principal); R06.02 Shortness of breath; R07.9 Chest pain, unspecified
CPT/HCPCS: 93306

== ENCOUNTER → 2023-07-23 10:30 | Outpatient (BNVA) | payer MEDICARE, MEDICAID, SELFPAY | PROVIDERS: PCP Nurse Practitioner Family; Visit Provider Nurse Practitioner Family | DX: I10 Essential (primary) hypertension (principal); Z12.5 Encounter for screening for malignant neoplasm of prostate | CPT/HCPCS: 80053; 80061; 84443; 85025; G0103 ==

== ENCOUNTER → 2023-11-02 10:51 | Outpatient (BNVA) | payer MEDICARE, MEDICAID, SELFPAY | PROVIDERS: PCP Nurse Practitioner Family; Visit Provider Nurse Practitioner Family | DX: E78.5 Hyperlipidemia, unspecified (principal) | CPT/HCPCS: 80053; 80061; 85025 ==

== ENCOUNTER 2024-02-18 12:00 | Outpatient (CLI) | payer MEDICARE, MEDICAID, SELFPAY ==
--- NOTE | 2024-02-18 12:00 | CT_ITS ---
WS: [id number] LDCT LUNG CANCER SCREENING TECHNIQUE: Noncontrast CT of the chest with coronal and sagittal reformatted images. CLINICAL INFORMATION: F17.210 - Nicotine dependence, cigarettes, uncomplicated COMPARISON: CT 02/12/2023 DLP: 71.07 mGy.cm DIvol: Mean CTDIvol: 1.10 (mGy) All CT scans at [facility] use at least one of these dose optimization techniques: automat ed exposure control; mA and/or kV adjustment per patient size (includes targeted exams where dose is matched to clinical indication); or iterative reconstruction. FINDINGS:Calcified granuloma adjacent to the aortic arch. Tiny noncalcified nodule LEFT upper lobe at the lung apex. Moderate to severe centrilobular emphysema. Small esophageal hiatal hernia. Subsegmental atelectasis in the lung bases. Normal caliber thoracic aorta. Aortic calcification. Coronary calcification. Patricia l caliber descending thoracic aorta. No axillary lymphadenopathy. No mediastinal or hilar lymphadenop athy. Small esophageal hiatal hernia. Mild thoracic kyphosis and hypertrophic changes thoracic spine. IMPRESSION: CT/CT lung screening [id number] LUNG-RADS: 2-Benign Appearance or Behavior FOLLOW UP: 12 Month: Continue annual screening with LDCT
== END 2024-02-18 12:01 | disposition home or self-care (01) ==
PROVIDERS: PCP Nurse Practitioner Family; Visit Provider Internal Medicine Pulmonary Disease
DX: Z12.2 Encounter for screening for malignant neoplasm of respiratory organs (principal); F17.210 Nicotine dependence, cigarettes, uncomplicated; J43.2 Centrilobular emphysema; K44.9 Diaphragmatic hernia without obstruction or gangrene; J98.11 Atelectasis; I70.0 Atherosclerosis of aorta; I25.84 Coronary atherosclerosis due to calcified coronary lesion
CPT/HCPCS: 71271

== ENCOUNTER → 2024-03-27 13:50 | Outpatient (BNVA) | payer MEDICARE, MEDICAID, SELFPAY | PROVIDERS: PCP Nurse Practitioner Family; Visit Provider Internal Medicine | DX: R07.9 Chest pain, unspecified (principal); I25.10 Atherosclerotic heart disease of native coronary artery without angina pectoris; I48.91 Unspecified atrial fibrillation; I10 Essential (primary) hypertension; E78.5 Hyperlipidemia, unspecified; J44.9 Chronic obstructive pulmonary disease, unspecified | CPT/HCPCS: 99214 ==

== ENCOUNTER 2024-04-27 07:22 | Outpatient (CLI) | payer MEDICARE, MEDICAID, SELFPAY ==
--- NOTE | 2024-04-27 | ECG_ITS ---
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
[2024-04-27 07:25] VITALS: BMI 23.1
--- NOTE | 2024-04-27 07:25 | NMCV_ITS ---
NM jasmin perf SPECT r/s* [id number] Sampson Bean Age: 58 Gender: M : 1965 Exam Date: 04/27/2024 08:54 Ordering Phys: Victorino Cool M.D Technologist: KAYODE Herrera Exam Location: [facility] Indications: cp STRESS TEST [facility] IMAGE PROTOCOL Rest/Stress 1 Lexiscan Day Radiopharmaceutical Dose (mCi) Administration Site Administered by Rest: Tc-99m 11 IV KAYODE Herrera Sestamibi Stress:Tc-99m 33 IV KAYODE Cordero Sestamibi Rest: 27-Apr-2024 60 Discovery 630 Stress: 27-Apr-2024 30 Discovery 630 0.4mg Lexiscan. Images obtained in supine and prone position. SPECT RESULTS Technical Quality: Good Raw Data Analysis: Adequate Image Corrections: No attenuation or motion correction applied Summed Stress Score: 0 Summed Rest Score: 3 Summed Difference Score: 0 PERFUSION FINDINGS There is a medium sized area of inconsistent perfusion defect seen in the apical, apical septal and inferior dutta that resolves on stress imaging. This is consistent with attenuation artifact. No evidence of ischemia seen. FUNCTIONAL RESULTS (calculated via Gated SPECT) Stress Image LV EF (%): 65 Stress EDV (mL):109 TID: 0.93 Stress ESV (mL):38 FUNCTIONAL FINDINGS: There is normal left ventricular systolic function. IMPRESSIONS 1. Attenuation artifact seen in the apical, apical septal and inferior dutta. No evidence of ischemia. 2. LV systolic function is normal Victorino Cool MD (Electronically Signed) Final Date: 27 April 2024 12:17 S
[2024-04-27] MEDS: regadenoson 0.4 Mg/5 ml Syringe IVP (08:39)
[2024-04-27 08:48] VITALS: BP 131/79; PULSE 87
== END 2024-04-27 07:23 | disposition home or self-care (01) ==
PROVIDERS: PCP Nurse Practitioner Family; Visit Provider Internal Medicine
DX: R07.9 Chest pain, unspecified (principal); R94.39 Abnormal result of other cardiovascular function study; R93.1 Abnormal findings on diagnostic imaging of heart and coronary circulation
CPT/HCPCS: 78452; 93017; A9500; J2785

== ENCOUNTER → 2024-08-31 08:31 | Outpatient (BNVA) | payer MEDICARE, MEDICAID, SELFPAY | PROVIDERS: PCP Nurse Practitioner Family; Visit Provider Nurse Practitioner Family | DX: Z12.5 Encounter for screening for malignant neoplasm of prostate (principal); I10 Essential (primary) hypertension; E78.5 Hyperlipidemia, unspecified | CPT/HCPCS: 80053; 80061; 84443; 85025; G0103 ==

== ENCOUNTER → 2024-10-02 15:10 | Outpatient (BNVA) | payer MEDICARE, MEDICAID, SELFPAY | PROVIDERS: PCP Nurse Practitioner Family; Visit Provider Internal Medicine | DX: I25.10 Atherosclerotic heart disease of native coronary artery without angina pectoris (principal); I48.91 Unspecified atrial fibrillation; I10 Essential (primary) hypertension; E78.5 Hyperlipidemia, unspecified; J44.9 Chronic obstructive pulmonary disease, unspecified; F17.210 Nicotine dependence, cigarettes, uncomplicated | CPT/HCPCS: 99214 ==

== ENCOUNTER → 2025-04-10 11:01 | Outpatient (BNVA) | payer MEDICARE, MEDICAID, SELFPAY | PROVIDERS: PCP Nurse Practitioner Family; Visit Provider Nurse Practitioner Family | DX: I10 Essential (primary) hypertension (principal); I25.10 Atherosclerotic heart disease of native coronary artery without angina pectoris | CPT/HCPCS: 80053; 80061; 85025 ==

== ENCOUNTER 2025-04-20 09:34 | Outpatient (CLI) | payer OTHER, MEDICAID, SELFPAY ==
--- NOTE | 2025-04-20 09:15 | CT_ITS ---
WS: [email or web address] LDCT LUNG CANCER SCREENING TECHNIQUE: Noncontrast CT of the chest with coronal and sagittal reformatted images. CLINICAL INFORMATION: F17.210 - Nicotine dependence, cigarettes, uncomplicated COMPARISON: 2023 DLP: 62.79 mGy.cm DIvol: Mean CTDIvol: 1.00 (mGy) All CT scans at [facility] use at least one of these dose optimization techniques: automated exposure control; mA and/or kV adjustment per patient size (includes targeted exams where dose is matched to clinical indication); or iterative reconstruction. FINDINGS: Tiny noncalcified nodule LEFT upper lobe at the lung apex. A few calcified granulomas. Small RIGHT middle lobe nodule. Subsegmental atelectasis RIGHT lower lobe. More focal consolidative ovoid opacity RIGHT lower lobe along the diaphragm measuring 4.3 x 1.8 cm. This is indeterminate and new compared to previous. This could be further evaluated PET/CT. Moderate to severe centrilobular emphysema. Small esophageal hiatal hernia. Subsegmental atelectasis in the lung bases. Normal caliber thoracic aorta. Aortic calcification. Coronary calcification. No axillary lymphadenopathy. No mediastinal or hilar lymphadenopathy. Mild thoracic kyphosis and hypertrophic changes thoracic spine. CT/CT lung screening [id number] IMPRESSION: New ovoid opacity RIGHT lower lobe medially is new compared to previous. This i s indeterminate measuring 4.3 x 1.8 cm. This may be infectious or inflammatory but neoplasm not excluded. Recommend further evaluation with PET/CT. LUNG-RADS: 4B-Suspicious FOLLOW UP: PET/CT recommended
== END 2025-04-20 09:35 | disposition home or self-care (01) ==
LOC: RAD 09:36
PROVIDERS: Family Provider Internal Medicine; PCP Nurse Practitioner Family; Visit Provider Nurse Practitioner Family
DX: Z12.2 Encounter for screening for malignant neoplasm of respiratory organs (principal); F17.210 Nicotine dependence, cigarettes, uncomplicated; J98.11 Atelectasis; R91.8 Other nonspecific abnormal finding of lung field; J98.4 Other disorders of lung; J43.2 Centrilobular emphysema; K44.9 Diaphragmatic hernia without obstruction or gangrene; M40.204 Unspecified kyphosis, thoracic region
CPT/HCPCS: 71271

== ENCOUNTER → 2025-05-07 13:43 | Outpatient (BNVA) | payer OTHER, MEDICAID, SELFPAY | PROVIDERS: Family Provider Internal Medicine; PCP Nurse Practitioner Family; Visit Provider Internal Medicine | DX: J44.89 Other specified chronic obstructive pulmonary disease (principal); R91.1 Solitary pulmonary nodule; R91.8 Other nonspecific abnormal finding of lung field; F17.211 Nicotine dependence, cigarettes, in remission; J44.9 Chronic obstructive pulmonary disease, unspecified | CPT/HCPCS: 36415; 85025; 99215 ==

== ENCOUNTER 2025-05-30 07:07 | Outpatient (CLI) | payer OTHER, MEDICAID, SELFPAY ==
[2025-05-30 07:36] VITALS: PULSE 85; RESP 20; O2SAT 92
== END 2025-05-30 07:08 | disposition home or self-care (01) ==
LOC: RT 07:09
PROVIDERS: Family Provider Internal Medicine; PCP Nurse Practitioner Family; Visit Provider Nurse Practitioner Family
DX: J44.9 Chronic obstructive pulmonary disease, unspecified (principal)
CPT/HCPCS: 94060; 94726; 94729; J7613

== ENCOUNTER 2025-06-08 07:48 | Outpatient (CLI) | payer OTHER, MEDICAID, SELFPAY ==
--- NOTE | 2025-06-08 13:00 | PETR_ITS ---
PROCEDURE INFORMATION: Exam: PET/CT Skull Base to Mid-thigh Exam date and time: 06/08/2025 9:29 AM Age: 59 years old Clinical indication: Abnormal findings; Other nonspecific abnormal finding of lung field; Additional info: R91.8 - other nonspecific abnormal finding of lung field LABS AND CLINICAL REPORTS: Glucose: 95 mg/dl Treatment strategy for malignancy (PET staging): Initial Staging (PI) TECHNIQUE: Imaging protocol: Following at least four-hour fasting and following the injection of radiopharmaceutical, low dose CT images were obtained. Then, PET images were obtained. Attenuation corrected images were constructed using the CT scan. Fused images of PET and CT were reviewed. The standardized uptake values (SUV) reported below are maximum values within a region of interest, expressed in gm/ml. Exam includes orbital meatal line to mid-thigh. SUV normalization method: BodyWeight Radiopharmaceutical: 10.56 mCi F-18 FDG (Fluorodeoxyglucose), IV. Time of imaging post radiopharmaceutical administration: 46 minutes Injection site: right hand COMPARISON: CT lung screening [id number] 04/20/2025 9:44 AM FINDINGS: Brain: Visualized brain has normal physiologic uptake. Pharynx: No abnormal uptake. Larynx: No abnormal uptake. Lungs, pleura and trachea: Interval resolution of previously seen do ovoid opacity in the medial right lower lobe, which was likely infectious or inflammatory etiology. Moderate emphysema. Lingular atelectasis. Heart: Normal physiologic uptake. Mediastinal space: No abnormal uptake. Liver: No abnormal uptake. Gallbladder and biliary ducts: No abnormal uptake. Pancreas: No abnormal uptake. Spleen: No abnormal uptake. Adrenal glands: No abnormal uptake. Kidneys and ureters: Normal physiologic uptake. Stomach and bowel: No abnormal uptake. Vasculature: No abnormal uptake. Lymph nodes: FDG avid subcentimeter mediastinal and bilateral hilar lymph nodes with SUV max of 4.8 favored reactive. Skeleton: No abnormal uptake in the visualized axial and appendicular skeleton. Soft tissues: No abnormal uptake in the visualized head, neck, chest, abdomen, pelvis, and extremities. METRICS: Mediastinal blood pool: SUV max = 2.6 Liver uptake: SUV max = 2.9 PET/PET skull to thigh INIT [id number] IMPRESSION: 1. Interval resolution of previously seen ovoid opacity in the medial right lower lobe, which was likely infectious or inflammatory etiology. 2. No FDG pulmonary nodule. 3. FDG avid subcentimeter mediastinal and bilateral hilar lymph nodes with SUV max of 4.8, favored reactive.
== END 2025-06-08 07:49 | disposition home or self-care (01) ==
PROVIDERS: Family Provider Internal Medicine; PCP Nurse Practitioner Family; Visit Provider Nurse Practitioner Family
DX: R91.8 Other nonspecific abnormal finding of lung field (principal); R59.0 Localized enlarged lymph nodes; J43.9 Emphysema, unspecified; J98.11 Atelectasis
CPT/HCPCS: 78815; A9552

== ENCOUNTER → 2025-06-14 08:15 | Outpatient (BNVA) | payer OTHER, MEDICAID, SELFPAY | PROVIDERS: Family Provider Internal Medicine; PCP Nurse Practitioner Family; Visit Provider Internal Medicine | DX: J44.89 Other specified chronic obstructive pulmonary disease (principal); R91.1 Solitary pulmonary nodule; R91.8 Other nonspecific abnormal finding of lung field; Z87.891 Personal history of nicotine dependence | CPT/HCPCS: 99214; Q3014 ==

== ENCOUNTER → 2025-07-02 14:55 | Outpatient (BNVA) | payer OTHER, MEDICAID, SELFPAY | PROVIDERS: Family Provider Internal Medicine; PCP Nurse Practitioner Family; Visit Provider Internal Medicine | DX: I25.10 Atherosclerotic heart disease of native coronary artery without angina pectoris (principal); I48.91 Unspecified atrial fibrillation; I10 Essential (primary) hypertension; Z87.891 Personal history of nicotine dependence | CPT/HCPCS: 99214 ==